=== PATIENT | female | born 1970 | race Caucasian/White ===

== ENCOUNTER → 2017-02-07 | Outpatient (CLI) | payer OTHER ==
[~2017-02-07] MED LIST: AMB5 PO
--- NOTE | 2017-02-07 13:47 | DIAGNOSTIC IMAGING REPORT ---
Brain MRI WITHOUT CONTRAST HISTORY: Mental status change R41.3 Memory [id number] TECHNIQUE: Multiplanar multisequence MRI of the brain was performed without the use of contrast. COMPARISON STUDY: None. FINDINGS: There are no areas of restricted diffusion to suggest acute infarction. The midline structures are intact. The paranasal sinuses are clear. The mastoid air cells are clear. The ventricles and sulci are within normal limits for age. There is no mass, hematoma, midline shift. The major vascular flow-voids at the skull base are well maintained. Findings of age-related atrophy and mild chronic small vessel change. IMPRESSION: No acute intracranial abnormality. Moderate age-related atrophy and mild chronic small vessel change. Electronically signed by: Vini Crump M.D. 02/07/2017 1:46 PM Dictated Date/Time: 02/07/2017 1:44 PM
== END | disposition home or self-care (01) ==
LOC: C.MRI 13:06
PROVIDERS: ATTEND Psychiatry & Neurology Neurology
DX: R41.3 Other amnesia (principal)